=== PATIENT | female | born 1970 | race Caucasian/White ===

== ENCOUNTER 2018-08-30 08:40 | Emergency (ER) | payer MEDICAID, OTHER ==
[~2018-08-30] VITALS: Ht 167.6 cm; Wt 67.5 kg
[2018-08-30 08:46] VITALS: RESP 20; Ht 167.6 cm; Wt 67.5 kg
[2018-08-30] MEDS ORDERED: PROCHLORPERAZINE 10 MG INJ IV STA (08:51)
[2018-08-30] MEDS ORDERED: DIPHENHYDRAMINE 50 MG INJ IV STA (08:51)
[2018-08-30] MEDS ORDERED: KETOROLAC 30 MG INJ IV STA (08:51)
[2018-08-30] MEDS ORDERED: SOD CHLORIDE 0.9% 1,000 ML IV STA (08:51)
--- NOTE | 2018-08-30 08:54 | ERD ---
ER Documentation Chief Complaint Chief Complaint Complains of a severe headache with nausea x 3 days HPI This is a 58-year-old female who is been getting intermittent headaches over the past month. She states this particular one was gradual in onset bilateral frontal and is lasted 3 days with nausea and vomiting. She takes Tylenol which she states helps but only a little bit. She has no abdominal pain. No fever or recent illness. No photosensitivity or changes to her vision. No trauma. No neck stiffness. ROS All systems reviewed and are negative except as per history of present illness. Medications Home Meds Active Scripts Ondansetron (Ondansetron Odt) 4 Mg Tab.rapdis, 4 MG PO Q6H PRN for NAUSEA AND/OR VOMITING, #20 TAB Prov:ROSALINA HOGAN PA-C 08/30/18 Aspirin/Acetaminophen/Caffeine (Excedrin Migraine Geltab) 1 Each Tablet, 1 EACH PO Q6, #30 TAB Prov:ROSALINA HOGAN PA-C 08/30/18 Allergies Allergies: Coded Allergies: No Known Allergy (Unverified , 08/30/18) FmHx Family History: No diabetes Physical Exam Vitals Vital Signs Date Temp Pulse Resp B/P (MAP) Pulse Ox O2 O2 Flow FiO2 Time Delivery Rate 08/30/18 97.5 84 20 147/67 100 08:46 (93) Physical Exam INITIAL VITAL SIGNS: Reviewed by me GENERAL: Awake, alert and oriented x 4, well appearing, nontoxic, speaking in full sentences. No acute distress HEAD: Atraumatic NECK: Supple. No masses. Full range of motion. No meningismus. No midline tenderness. EYES: EOMI. PERRL. THROAT: No tonilar erythema or edema. No exudates. Uvula midline. No kissing tonsils. RESPIRATORY: Clear to auscultation bilaterally. Symmetric chest wall rise. No wheezing or rales. No accessory muscle use. CV: Regular rate and rhythm. No murmurs, rubs, or gallops. Neuro: M/S: Alert and oriented Face: EOMI, face and pharynx with normal sensation and function Motor: Normal strength throughout Sensation: Normal sensation throughout Speech: Normal Cerebel: Normal coordination Normal gait Normal finger to nose DTR: 2+ and symmetric upper/lower extremities Results 24 hrs Laboratory Tests Test 08/30/18 09:14 3/11/19 09:25 POC Beta HCG, Qualitative NEGATIVE Bedside Glucose 106 mg/dL Current Medications Medications Dose Sig/Osmar Start Time Status Last (Trade) Ordered Route PRN Stop Time Admin Dose Reason Admin Sodium 1,000 ml @ Q1H STAT 08/30/18 DC 08/30/18 Chloride 1,000 mls/hr IV 08:51 09:18 08/30/18 09:50 10 mg ONCE STAT 08/30/18 DC 08/30/18 Prochlorperaz IV 08:51 09:37 ine 08/30/18 08:53 (Compazine Inj) Ketorolac 15 mg ONCE STAT 08/30/18 DC 08/30/18 Tromethamine IV 08:51 09:17 (Toradol) 08/30/18 08:53 25 mg ONCE STAT 08/30/18 DC 08/30/18 Diphenhydrami IV 08:51 09:17 ne HCl 08/30/18 08:53 (Benadryl) Ondansetron 4 mg ONCE STAT 08/30/18 DC HCl (Zofran IV 09:19 Inj) 08/30/18 09:20 Procedures/MDM The differential diagnosis includes but is not limited to subdural hematoma, epidural hematoma, intracerebral hemorrhage, occult trauma, CVA, meningitis, encephalitis, hypertension, tension, migraine, cluster, cervical spine disease, and others. Accu-Chek ordered. IV fluids, Toradol, Compazine, and Benadryl given. CT scan ordered and was negative. Patient felt much better after the given treatment and she was discharged with Excedrin and Zofran. Patient counseled regarding my diagnostic impression and care plan. Prior to discharge all questions answered. Pt agrees with treatment plan and understands strict return precautions. Pt is instructed to follow up with primary care provider within 24-48 hours. Precautionary instructions provided including instructions to return to the ER if not improving or for any worsening or changing symptoms or concerns. Departure Diagnosis: Primary Impression: Headache Condition: Stable ROSALINA HOGAN PA-C Aug 30, 2018 08:54
[2018-08-30] MEDS ORDERED: ONDANSETRON 4 MG INJ IV STA (09:19)
[2018-08-30] MEDS ORDERED: ASPI1TAB21 PO (10:13)
[2018-08-30] MEDS ORDERED: ONDA4TAB14 PO (10:13)
[2018-08-30 10:24] VITALS: BP 114/70; PULSE 77
== END 2018-08-30 10:26 | disposition home or self-care (01) ==
LOC: FTE 08:40
DX: R51 Headache (principal); Z79.82 Long term (current) use of aspirin
CPT/HCPCS: 36415; 70450; 81025; 82962; 96374; 96375; J0780; J1200; J1885; J7030; Z7502